=== PATIENT | male | born 1995 | race Caucasian/White ===

== ENCOUNTER 2018-05-08 18:19 | Emergency (ER) | END 2018-05-08 23:36 | disposition home or self-care (01) ==

== ENCOUNTER 2019-03-16 13:16 | Emergency (ER) | payer OTHER ==
[~2019-03-16] VITALS: Wt 80.0 kg
[~2019-03-16 13:16] MED LIST: BISM-34 PO
[2019-03-16 13:17] VITALS: BP 142/86; PULSE 93; RESP 18
[2019-03-16] MEDS ORDERED: AMOX500C2 PO (13:46)
[2019-03-16] MEDS ORDERED: IBUP-1542 PO (13:46)
--- NOTE | 2019-03-16 13:48 | ERD ---
ER Documentation Chief Complaint Chief Complaint SSORE THROAT X 4 DAYS HPI 23-year-old male presents with sore throat and noticed some white patches for last 4 days. Denies fever chills. Denies rashes, neck stiffness, additional symptoms. ROS All systems reviewed and are negative except as per history of present illness. Medications Home Meds Active Scripts Azithromycin* (Zithromax*) 500 Mg Tablet, 500 MG PO DAILY for 5 Days, TAB Prov:IRISH RAM MD 03/16/19 Ibuprofen* (Motrin*) 600 Mg Tab, 600 MG PO Q6, #15 TAB Prov:IRISH RAM MD 03/16/19 Bismuth Subsalicylate* (Bismuth Subsalicylate*) 262 Mg/15 Ml Oral.susp, 15 ML PO Q6 PRN for diarr, #1 BOTTLE Prov:EDUARDA FIELD PA-C 05/08/18 Discontinued Scripts Amoxicillin* (Amoxicillin*) 500 Mg Cap, 500 MG PO TID for 10 Days, CAP Prov:IRISH RAM MD 03/16/19 Allergies Allergies: Coded Allergies: No Known Allergy (Unverified , 06/06/14) PMhx/Soc History of Surgery: Yes (HERNIA SURGERY) Anesthesia Reaction: No Hx Neurological Disorder: No Hx Respiratory Disorders: No Hx Cardiac Disorders: No Hx Psychiatric Problems: No Hx Miscellaneous Medical Probl: No Hx Alcohol Use: Yes (socially ) Hx Substance Use: No Hx Tobacco Use: Yes FmHx Family History: No diabetes, No coronary disease, No other Physical Exam Vitals Vital Signs Date Temp Pulse Resp B/P (MAP) Pulse Ox O2 O2 Flow FiO2 Time Delivery Rate 03/16/19 98.0 93 18 142/86 99 13:17 (104) Physical Exam Const: No acute distress Head: Atraumatic Eyes: Normal Conjunctiva ENT: Normal External Ears, Nose and Mouth. Tonsils 3+ with erythema and exudate. Uvula midline and airway patent. Neck: Full range of motion. No meningismus. Resp: Clear to auscultation bilaterally Cardio: Regular rate and rhythm, no murmurs Abd: Soft, non tender, non distended. Normal bowel sounds Skin: No petechiae or rashes Back: No midline or flank tenderness Ext: No cyanosis, or edema Neur: Awake and alert Psych: Normal Mood and Affect Procedures/MDM Patient presents with signs and symptoms of exudative pharyngitis. He may have viral pharyngitis or mono although given the duration and findings on exam we will treat empirically per patient request with Zithromax, ibuprofen, primary care follow-up and return precautions. There is no evidence of abscess or airway obstruction. Departure Diagnosis: Primary Impression: Sore throat Condition: Stable Patient Instructions: When You Have a Sore Throat, Pharyngitis, Strep (Presumed) Referrals: GHISLAINE EDMONDS MD (PCP) Additional Instructions: We will treat for strep. Recheck for new worsening symptoms or symptoms despite treatment for mono. Recheck otherwise with primary doctor. IRISH RAM MD Mar 16, 2019 13:48
[2019-03-16] MEDS ORDERED: AZIT500T3 PO (14:14)
== END 2019-03-16 14:06 | disposition home or self-care (01) ==
LOC: FTE 13:16
DX: J02.9 Acute pharyngitis, unspecified (principal); Z87.891 Personal history of nicotine dependence
CPT/HCPCS: 99283